=== PATIENT | female | born 1960 | race Two or more races ===

== ENCOUNTER 2022-03-19 04:16 | Emergency (ER) | payer OTHER ==
[~2022-03-19] VITALS: Ht 167.6 cm; Wt 72.6 kg
[2022-03-19] MEDS ORDERED: SYMBICORT 16010.2 GM IH (04:56)
[2022-03-19] MEDS ORDERED: BENZONATATE100 MG PO (04:56)
[2022-03-19] MEDS ORDERED: MOLNUPIRAVIR (200 MG PO (04:56)
[2022-03-19] MEDS ORDERED: PROAIR HFA8.5 GM (05:02)
== END 2022-03-19 05:22 ==
LOC: ER 04:16
DX: U07.1 COVID-19 (principal); J45.909 Unspecified asthma, uncomplicated; Z91.041 Radiographic dye allergy status

== ENCOUNTER 2024-06-20 13:59 | Outpatient (CLI) | payer OTHER ==
[~2024-06-20 13:59] MED LIST: BENZONATATE100 MG PO; MOLNUPIRAVIR (200 MG PO; PROAIR HFA8.5 GM; SYMBICORT 16010.2 GM IH
== END 2024-06-20 14:26 | disposition home or self-care (01) ==
LOC: TOM 13:59
PROVIDERS: ATTEND Internal Medicine Cardiovascular Disease
DX: R13.10 Dysphagia, unspecified (principal); E04.1 Nontoxic single thyroid nodule; E03.9 Hypothyroidism, unspecified

== ENCOUNTER 2025-08-27 10:40 | Outpatient (CLI) | payer OTHER | END 2025-08-27 10:47 | disposition home or self-care (01) | LOC: MRI 10:40 → RAD 10:40 | PROVIDERS: ATTEND Orthopaedic Surgery | DX: S93.491A Sprain of other ligament of right ankle, initial encounter (principal); M76.71 Peroneal tendinitis, right leg; M25.571 Pain in right ankle and joints of right foot; M79.671 Pain in right foot | CPT/HCPCS: 73721 ==